=== PATIENT | male | born 1940 | race Caucasian/White ===

== ENCOUNTER 2025-04-22 10:29 | Emergency (ER) | payer OTHER ==
[~2025-04-22] VITALS: Ht 167.6 cm; Wt 90.7 kg
[2025-04-22 10:32] VITALS: O2SAT 98
[2025-04-22 12:02] LABS: BASOPHILS % 1.1 % (0.0-2.0); EOSINOPHILS % 4.0 % (0.0-5.0); HEMATOCRIT. 41.2 % (42.0-52.0); HEMOGLOBIN. 13.0 g/dL (14.0-18.0); LYMPHOCYTES % 26.0 % (20.0-50.0); MEAN PLATELET VOLUME 8.2 fl (7.4-10.4); MONOCYTES % 9.2 % (2.0-8.0); NEUTROPHILS % 59.7 % (40.0-76.0); PLATELET 245 x1000/uL (130-400); RED BLOOD CELL COUNT 4.22 mill/uL (4.7-6.1); RED CELL DISTRIBUTION WIDTH 17.9 % (11.6-14.6)
[2025-04-22 12:09] LABS: CREATININE 1.3 mg/dL (0.6-1.3); UREA NITROGEN BLOOD 18.0 mg/dL (9-23)
[2025-04-22] MEDS ORDERED: CLIN150C2 MT (12:29)
[2025-04-22 13:15] VITALS: BP 119/71; PULSE 66; RESP 12; TEMP 37; O2SAT 100
== END 2025-04-22 13:37 | disposition home or self-care (01) ==
LOC: ER 10:29
DX: L03.90 Cellulitis, unspecified (principal); L03.116 Cellulitis of left lower limb; L03.115 Cellulitis of right lower limb; I87.2 Venous insufficiency (chronic) (peripheral); I10 Essential (primary) hypertension; Z86.73 Personal history of transient ischemic attack (TIA), and cerebral infarction without residual deficits
CPT/HCPCS: 36415; 80048; 85025; 99283